=== PATIENT | male | born 1970 | race Caucasian/White ===

== ENCOUNTER 2024-11-17 19:08 | Emergency (ER) | payer SELFPAY ==
[2024-11-17 19:15] VITALS: BP 147/91; PULSE 87; RESP 18; TEMP 36.5; O2SAT 99; BMI 30.7
[2024-11-17 19:35] LABS: Bilirubin Urine Negative (Negative); Blood Urine 3+ (Negative); Glucose Urine UA 3+ (Normal); Ketones Urine 1+ (Negative); Leukocyte Esterase Urine Negative (Negative); Nitrate Urine Negative (Negative); Protein Urine 1+ (Negative); Urine Appearance Cloudy (CLEAR); Urine Color Dark Yellow (Yellow)
[2024-11-17 19:48] LABS: Bacteria Urine TRACE /hpf; RBC Urine TOO NUMEROUS TO CNT /hpf (0-2); Specific Gravity, Urine 1.034 (1.005-1.030); Squamous Epithelial Cell Urine 0-4 /hpf (0-5); WBC Urine 0-4 /hpf (0-5)
[2024-11-17 19:49] LABS: Add Urine Culture? Yes
--- NOTE | 2024-11-17 20:02 | CTR_ITS ---
PROCEDURE INFORMATION: Exam: CT Abdomen And Pelvis Without Contrast Exam date and time: 11/17/2024 8:13 PM Age: 54 years old Clinical indication: Pain and abnormal findings; Abnormal lab test; Abdominal pain; C/O left flank pain with microhematuria. ; Additional info: Left flank/llq pain, hematuria TECHNIQUE: Imaging protocol: Computed tomography of the abdomen and pelvis without contrast. Radiation optimization: All CT scans at this facility use at least one of these dose optimization techniques: automated exposure control; mA and/or kV adjustment per patient size (includes targeted exams where dose is matched to clinical indication); or iterative reconstruction. COMPARISON: No relevant prior studies available. RADIATION DOSE METRICS: Total DLP (mGy-cm): 953.29 FINDINGS: Lungs: Unremarkable. Liver: Diffusely hypodense liver parenchyma. Hepatomegaly. Liver measures up to 23 cm in craniocaudal dimension. Gallbladder and biliary ducts: Distended gallbladder with mildly hyperdense contents. Pancreas: Normal. No ductal dilation. Spleen: Normal. No splenomegaly. Adrenal glands: Normal. No mass. Kidneys and ureters: Mild left hydronephrosis with 3 mm obstructing stone within proximal left ureter (3/122). Mild perinephric fat stranding. Right kidney is unremarkable. Stomach and bowel: Unremarkable. No obstruction. No mucosal thickening. Appendix: No evidence of appendicitis. Intraperitoneal space: Unremarkable. No free air. No significant fluid collection. Vasculature: Unremarkable. No abdominal aortic aneurysm. Lymph nodes: Unremarkable. No enlarged lymph nodes. Urinary bladder: Mild circumferential bladder wall thickening. Reproductive: Mildly enlarged prostate. Bones/joints: Unremarkable. No acute fracture. Soft tissues: Unremarkable. CT/CT kidney stone [id number] IMPRESSION: 1. Mild left hydronephrosis with perinephric fat stranding. 3 mm obstructing stone within proximal left ureter. 2. Mild circumferential bladder wall thickening, which may be due to underdistention, chronic outlet obstruction given enlarged prostate or cystitis. 3. Hepatomegaly with hepatic steatosis.
--- NOTE | 2024-11-17 20:03 | ED_ITS ---
HPI - Male Genitourinary 2 General: Chief complaint: Urogenital-Male Stated complaint: urgent care sent possible kidney stone Time Seen by Provider: 11/17/24 19:45 History of Present Illness: 54-year-old male presents the emergency department reporting he was referred from urgent care for imaging. Patient states that earlier today he was having a normal day and then started having what he thought was gas pain in his left upper abdomen and lateral abdomen. He went to the restroom where he thought he was going to pass gas. The pressure continued to build and he started getting nauseated and having a cool sweat. He reports that after about an hour and a half he decided to come to the urgent care. He reports his urine looked dark. After some retrospection, he states he is had a little bit of discomfort in his left lateral abdomen and flank for the last few days but nothing major. He reports he typically has a lot of gas and did not pay much attention. Patient reports he has had a lot of sugar today because it is a cheat day on his diet. He is not diabetic. He has not seen any gross blood in his urine although it is dark. He did end up vomiting twice along with the pain. He reports that urgent care the doctor did a CVA percussion test and right around that time his pain improved from a 9 out of 10 to a 1 out of 10, which it has remained. He does have a history of kidney stones. He denies any issues with his stools other than a lots of gas. Associated symptoms: Deny dysuria Related Data Previous Rx's ?Medication ?Instructions ?Recorded hydrocodone 5 mg-acetaminophen 325 1 tab PO Q6H PRN pa in (scale score 11/17/24 mg tablet 7-10) #14 tabs ondansetron 4 mg disintegrating 4 mg PO Q6H PRN nausea and 11/17/24 tablet vomiting #14 tabs tamsulosin 0.4 mg capsule (Flomax) 0.4 mg PO DAILY 7 d ays #7 caps 11/17/24 Allergies Allergy/AdvReac Type Severity Reaction Status Date / Time No Known Allergies Allergy Verified 11/17/24 19:21 Review of Systems 2 General: Reports: 10 or more systems reviewed and unremarkable except in HPI and below Const: Denies: fever(s), chills or body aches Eyes: Denies: change in vision ENMT: Denies: throat pain Card: Denies: chest pain, edema or syncope Resp: Denies: dyspnea or productive cough GI: Denies: diarrhea : Denies: dysuria or urinary frequency Musc: Denies: neck pain, back pain, extremity pain or extremity swelling Skin/Breast: Denies: rash or erythema Neuro: Denies: headache(s), numbness in extremities, weakness in extremities, lack of coordination or difficulty walking PFSH ED 2 PFSH: Social History Smoking and tobacco/nicotine status: never used tobacco/nicotine Physical Exam 2 Narrative: EXAM NARRATIVE: Well-appearing, nontoxic, obese, normal alertness and orientation. No CVA percussion tenderness. No abdominal tenderness. No excessive tympany to percussion. Const: COMMON NORMALS: no limitations, alert and well nourished EXAM LIMITATIONS: no altered mental status HENMT: COMMON NORMALS: normocephalic, atraumatic and external ears normal H EAD & SCALP: normocephalic and atraumatic EXTERNAL EAR: Yes external ears normal MOUTH: no muffled voice Eye: COMMON NORMALS: conjunctivae normal and no scleral icterus C ONJUNCTIVA: Yes conjunctivae normal Neck/C-Spine: GENERAL: Yes normal visual inspection and Yes trachea midline Resp: COMMON NORMALS: normal respiratory effort and No use of accessory muscles Cardio: COMMON NORMALS: regular rate RATE: regular rate GI: COMMON NORMALS: Soft to palpation and non-tender PALPATION: Yes Soft to palpation and No Guarding due to palpation present (GI) Extremity: COMMON NORMALS: normal to inspection Neuro: COMMON NORMALS: moves all extremities, no focal motor deficits and no sensory deficits noted SENSORIUM/ORIENTATION: Yes alert SPEECH: speech normal Psych: COMMON NORMALS: mental status grossly normal, Normal thought process present, cooperative, normal affect and speech normal SPEECH: Yes normal speech THOUGHT PROCESS: Normal thought process present Skin: COMMON NORMALS: no rashes or lesions noted, turgor normal and no jaundice GENERAL SKIN EXAM: no rashes or lesions noted and turgor normal Course 2 Vital Signs: Vital signs: Vital Signs Temperature 97.7 F 11/17/24 19:15 Pulse Rate 93 11/17/24 20:33 Respiratory Rate 16 11/17/24 20:33 Blood Pressure 153/86 11/17/24 20:33 Pulse Oximetry 94 11/17/24 20:33 Oxygen Delivery Me thod Room Air 11/17/24 20:33 MDM - Male Medical Decision Making Differential diagnosis includes ureterolithiasis with intermittent ureteral obstruction and colic, passed kidney stone, transient bowel obstruction, intussusception, obstipation, constipation, vascular pathology, unlikely diverticulitis or colitis, unlikely intestinal perforation, unlikely mesenteric ischemia, unlikely acute coronary syndrome, hernia, other. Patient reports his abdomen felt bloated like he had lots of gas. Currently he says this has resolved. He reports that this may have been a distraction. A lot of the features feel the same as when he has had kidney stones in the past. He is amenable to proceeding with a CT scan of the abdomen and pelvis without contrast, urine analysis, CBC and CMP. We have a low suspicion at this time for vascular dissection, mesenteric ischemia, ischemic organ, or AAA rupture. We have not elected to do an angiogram. UPDATE: Patient's renal function was reviewed. Creatinine is 1. LFTs are okay. White count was elevated. Blood appeared slightly hemoconcentrated. Urine has red blood cells but no signs of infection. Patient's hemoglobin is elevated at 278. He does not have a history of diabetes. He reports he had 3 large very sugary lemonade's today. This could be acute hyperglycemia. I advised that he get a hemoglobin A1c performed. No signs of DKA. Patient and his understood the need for follow-up. Patient has no discomfort at this time. I advised him of the finding of mild left hydronephrosis with a kidney stone on the left side. The pain is likely to come and go until it passes. With this size of stone, he is likely to pass it. Encouraged hydration, lots of activity, strain the urine, and if no improvement in 1 week follow-up with his doctor. Patient will be prescribed Flomax, instructed to take ibuprofen 400 mg every 6 hours, and to use hydrocodone only when needed. Follow-up with PCP regarding hyperglycemia and return to low sugar diet Medical Records I reviewed the patient's medical records. Lab Data I reviewed the patient's lab results. 11/17/24 20:24 11/17/24 20:24 Radiology Impressions Abdomen/Pelvis CT 11/17/24 20:02 IMPRESSION: 1. Mild left hydronephrosis with perinephric fat stranding. 3 mm obstructing stone within proximal left ureter. 2. Mild circumferential bladder wall thickening, which may be due to underdistention, chronic outlet obstruction given enlarged prostate or cystitis. 3. Hepatomegaly with hepatic steatosis. Laboratory Results WBC 15.87 10^3/uL (3.29-11.43) H 11/17/24 20:24 RBC 5.72 10^6/uL (3.85-5.65) H 11/17/24 20:24 Hgb 15.60 g/dL (11.27-16.99) 11/17/24 20:24 Hct 47.6 % (37-53) 11/17/24 20:24 MCV 83.2 fl (82-101) 11/17/24 20: MCH 27.3 pg (27-33) 11/17/24 20:24 MCHC 32.8 g/dL (30-55) 11/17/24 20:24 RDW 13.4 % (12.1-15.1) 11/17/24 20:24 Plt Count 209 10^3/cmm (157-399) 11/17/24 20:24 MPV 9.7 fL (7.4-10.4) 11/17/24 20: Neut % (Auto) 89.7 % 11/17/24: Lymph % (Auto) 6.6 % 11/17/24 20: [place] % (Auto) 2.5 % 11/17/24 20: Eos % (Auto) 0.2 % 11/17/24: Baso % (Auto) 0.3 % 11/17/24: Neut # (Auto) 14.24 10^3/uL (1.8-7.7) H 11/17/24 20:24 Lymph # (Auto) 1.1 10^3/uL (0.8-4.8) 11/17/24 20:24 [place] # (Auto) 0.4 10^3/uL (0.2-0.9) 11/17/24 20:24 Eos # (Auto) 0.0 10^3/uL (0.0-0.8) 11/17/24 20: Baso # (Auto) 0.1 10^3/uL (0.0-0.1) 11/17/24 20:24 Nucleated RBC % (auto) 0 % 11/17/24 20: Nucleated RBCs # 0.0 /100WBC 11/17/24 20:24 Sodium 134 mmol/L (136-145) L 11/17/24 20:24 Potassium 4.4 mmol/L (3.5-5.1) 11/17/24 20:24 Chloride 98 mmol/L (98-107) 11/17/24 20:24 Carbon Dioxide 24 mmol/L (22-29) 11/17/24 20:24 Anion Gap 16.4 (5-19) 11/17/24 20:24 BUN 16 mg/dL (6-20) 11/17/24 20:24 Creatinine 1.0 mg/dL (0.7-1.2) 11/17/24 20:24 GFR Calculation 78.5 mL/min (90-130) L 11/17/24 20:24 Glucose 278 mg/dL (65-115) H 11/17/24 20:24 Calculated Osmolality 289 mOsm/kg (285-295) 11/17/24 20:24 Calcium 9.4 mg/dL (8.5-10.5) 11/17/24 20:24 Total Bilirubin 0.4 mg/dL (0.15-1.2) 11/17/24 20:24 AST 34 U/L (0-40) 11/17/24 20:24 ALT 58 U/L (0-41) H 11/17/24 20:24 Alkaline Phosphatase 77 U/L (40-130) 11/17/24 20:24 Total Protein 7.4 g/dL (6.6-8.7) 11/17/24 20:24 Albumin 4.8 g/dL (3.5-5.2) 11/17/24 20:24 Globulin 2.6 g/dL (1.3-4.6) 11/17/24 20:24 Urine Color Dark yellow (Yellow) A 11/17/24 19:25 Urine Appearance Cloudy (CLEAR) A 11/17/24: Urine pH 5.0 (5-7) 11/17/24 19:25 Ur Specific [place] 1.034 (1.005-1.030) H 11/17/24 19: Urine Protein 1+ (Negative) A 11/17/24 19:25 Urine Glucose (UA) 3+ (Normal) H 11/17/24 19:25 Urine Ketones 1+ (Negative) H 11/17/24 19: Urine Blood 3+ (Negative) A 11/17/24 19: Urine Nitrate Negative (Negative) 11/17/24 19:25 Urine Bilirubin Negative (Negative) 11/17/24 19: Urine Urobilinogen 1.0 mg/dL (Negative) 11/17/24 19: Ur Leukocyte Esterase Negative (Negative) 11/17/24 19:25 Urine RBC Too numerous to cnt /hpf (0-2) H 11/17/24 19:25 Urine WBC 0-4 /hpf (0-5) H 11/17/24 19:25 Ur Squamous Epith Cells 0-4 /hpf (0-5) H 11/17/24 19:25 Amorphous Sediment Not Reportable 11/17/24 19: Urine Bacteria Trace /hpf (NONE) 11/17/24 19:25 All radiology interpretation(s) finalized by discharge Discharge Plan Discharge Patient Disposition: Home Clinical Impression: Ureterolithiasis, Hyperglycemia Condition: Stable Prescriptions: New tamsulosin [Flomax] 0.4 mg capsule 0.4 mg PO DAILY 7 Days Qty: 7 0RF hydrocodone-acetaminophen 5-325 mg tablet 1 tab PO Q6H PRN (Reason: pain (scale score 7-10)) Qty: 14 0RF ondansetron 4 mg tablet,disintegrating 4 mg PO Q6H PRN (Reason: nausea and vomiting) Qty: 14 0RF Discharge Orders: Discharge ED (Routine); Ordered 11/17/24 Ordered By: Ronald Beltran Patient Instructions: Hyperglycemia, Kidney Stones (ED), How to Strain Your Urine (ED), Opioid Safety Activity Restrictions/Additional Instructions: 1. You have a small kidney stone on the left side. There is a high likelihood that you will pass it. Please strain all of your urine. 2. Take ibuprofen 400 mg every 6 hours with food for the next 5 to 7 days. 3. You may take hydrocodone as needed for severe pain. It may make you constipated. Please make sure that you have some constipation medications on hand. 4. If you have not passed your kidney stone or your pain has not resolved, then please follow-up with your doctor in 1 week. 5. Return to the emergency department if you have fever or other urgent complications. Please read all discharge instructions and abide by recommendations and return precautions. Make an appointment to follow-up with your primary care doctor as directed for follow-up. Return to ER if getting worse or other emergent symptoms. Print Language: Mohawk Coding Level of Care Code ED [employer] Receiving Supervisor for Isacc Mann
[2024-11-17 20:29] LABS: Basophils # 0.1 10^3/uL (0.0-0.1); Basophils % 0.3 %; Eosinophils % 0.2 %; Hematocrit 47.6 % (37-53); Lymphocytes # 1.1 10^3/uL (0.8-4.8); Lymphocytes % 6.6 %; Mean Corpuscular HGB Conc 32.8 g/dL (30-55); Mean Corpuscular Hemoglobin 27.3 pg (27-33); Mean Corpuscular Volume 83.2 fl (82-101); Mean Platelet Volume 9.7 fL (7.4-10.4); Monocytes # 0.4 10^3/uL (0.2-0.9); Monocytes % 2.5 %; Neutrophils # 14.24 10^3/uL (1.8-7.7); Neutrophils % 89.7 %; Nucleated Red Blood Cells % 0 %; Platelet Count 209 10^3/cmm (157-399); Red Blood Count 5.72 10^6/uL (3.85-5.65); Red Cell Distribution Width 13.4 % (12.1-15.1); White Blood Count 15.87 10^3/uL (3.29-11.43)
[2024-11-17 20:33] VITALS: BP 153/86; PULSE 93; RESP 16; O2SAT 94
[2024-11-17 20:51] LABS: Alanine Aminotransferase 58 U/L (0-41); Albumin Level 4.8 g/dL (3.5-5.2); Alkaline Phosphatase 77 U/L (40-130); Anion Gap 16.4 (5-19); Aspartate Amino Transferase 34 U/L (0-40); Blood Urea Nitrogen 16 mg/dL (6-20); Calcium 9.4 mg/dL (8.5-10.5); Carbon Dioxide 24 mmol/L (22-29); Chloride 98 mmol/L (98-107); Globulin 2.6 g/dL (1.3-4.6); Glomerular Filtration Rate 78.5 mL/min (90-130); Glucose 278 mg/dL (65-115); Osmolality Calculated 289 mOsm/kg (285-295); Potassium 4.4 mmol/L (3.5-5.1); Sodium 134 mmol/L (136-145); Total Bilirubin 0.4 mg/dL (0.15-1.2); Total Protein 7.4 g/dL (6.6-8.7)
[2024-11-17] MEDS: tamsulosin 0.4 mg Capsule PO (21:31)
[2024-11-17 21:47] VITALS: BP 134/93; PULSE 94; RESP 18; O2SAT 99
== END 2024-11-17 21:51 | disposition home or self-care (01) ==
PROVIDERS: Emergency Medicine; Emergency Provider Emergency Medicine
DX: N20.1 Calculus of ureter (principal); R73.9 Hyperglycemia, unspecified
CPT/HCPCS: 36415; 74176; 80053; 81001; 85025; 87086; 99284